=== PATIENT | male | born 1965 | race Caucasian/White ===

== ENCOUNTER 2016-08-19 14:49 | Emergency (ER) | payer OTHER ==
[2016-08-19] MEDS ORDERED: BABY ASPIRIN 81 MG CHEW PO ONE (15:21)
--- NOTE | 2016-08-19 15:23 | ERPHSYRPT ---
- History of Present Illness Time Seen by Provider: 08/19/16 15:15 Historian: patient Exam Limitations: no limitations Patient Subjective Stated Complaint: Pt c/o chest pain onset approx 1 hour ago. Denies any other symptoms. States he was just sitting at the desk. Also c/o bilateral "kidney pain" and urinary frequency. Triage Nursing Assessment: Pt alert and oriented x3. skin pink warm and dry. afebrile. heart tones irregular. no edema noted. pt does not appear to be in any distress at this time Physician History: 51 y/o morbidly obese male with history of a fib and arthritis comes to the ER with complaints of substernal chest pain, palpitations, dizziness and polyuria that started 2 hrs prior to arrival. Pt describes the pain as dull, 1/10, intermittent and pt has not taken any pain meds. Pt was diagnosed 15 years ago with a fib but decided to not being started on coumadin because of the interaction with diclofenac. Pt has had infrequent episodes of a fib throughout the years. Pt did admit to drinking coffee prior to having symptoms. Timing/Duration: today Activities at Onset: none Quality: dullness Location: substernal Chest Pain Radiation: no radiation Severity of Pain-Max: mild Severity of Pain-Current: none Modifying Factors: Improves With: nothing Associated Symptoms: denies symptoms Prior Chest Pain/Cardiac Workup: no prior chest pain Nitro Today/Relief: no nitro taken today Aspirin Treatment Today: no aspirin today Allergies/Adverse Reactions: No Known Drug Allergies Allergy (Unverified 08/19/16 14:59) Home Medications: Diclofenac Sodium 75 mg PO BID 08/19/16 [History] Metoprolol Tartrate 50 mg [Lopressor 50 MG] 100 mg PO BID 08/19/16 [ History] Sildenafil Citrate [Viagra] 25 mg PO UD 08/19/16 [History] Hx Tetanus, Diphtheria Vaccination/Date Given: (unknown) Hx Influenza Vaccination/Date Given: No Hx Pneumococcal Vaccination/Date Given: No Immunizations Up to Date: Yes - Review of Systems Constitutional: No Fever, No Chills Eyes: No Symptoms Ears, Nose, & Throat: No Symptoms Respiratory: No Cough, No Dyspnea Cardiac: Chest Pain, Palpitations, No Edema, No Syncope Abdominal/Gastrointestinal: No Abdominal Pain, No Nausea, No Vomiting, No Diarrhea Genitourinary Symptoms: No Dysuria Musculoskeletal: No Back Pain, No Neck Pain Skin: No Rash Neurological: No Dizziness, No Focal Weakness, No Sensory Changes Psychological: No Symptoms Endocrine: No Symptoms All Other Systems: Reviewed and Negative - Past Medical History Pertinent Past Medical History: Yes Cardiac History: Arrhythmia Musculoskeletal History: Arthritis - Past Surgical History Past Surgical History: Yes Musculoskeletal: Orthopedic Surgery Other Surgical History: knee scope - Social History Smoking Status: Never smoker Exposure to second hand smoke: No Drug Use: none Patient Lives Alone: No - Nursing Vital Signs Temperature: 98.0 F Temperature Source: Oral Pulse Rate: 115 Respiratory Rate: 22 Pain Intensity: 1 - Physical Exam General Appearance: no apparent distress, alert, obese Eye Exam: PERRL/EOMI, eyes nml inspection Ears, Nose, Throat Exam: normal ENT inspection, moist mucous membranes Neck Exam: normal inspection, non-tender, supple, full range of motion Respiratory Exam: normal breath sounds, lungs clear, No respiratory distress Cardiovascular Exam: tachycardia Gastrointestinal/Abdomen Exam: soft, No tenderness, No mass Back Exam: normal inspection, No CVA tenderness, No vertebral tenderness Extremity Exam: normal inspection, normal range of motion Neurologic Exam: alert, oriented x 3, cooperative, normal mood/affect, sensation nml, No motor deficits Skin Exam: normal color, warm, dry SpO2: 98 Oxygen Delivery: Room Air - Course EKG Interpreted by Me: RATE (hr 139), A-fib Ordered Tests: Active Orders 24 hr Category Date Time Status Support Architect STAT Care 08/19/16 15:21 Active EKG-ER Only STAT Care 08/19/16 15:46 Active IV Insertion STAT Care 08/19/16 15:21 Active Pulse Oximetry (ED) STAT Care 08/19/16 15:21 Active Re-Check Vital Signs STAT Care 08/19/16 15:21 Active CHEST 2 VIEWS (PA AND LAT) Stat Exams 08/19/16 15:22 Taken CBC W DIFF Stat Lab 08/19/16 15:35 Completed CK-Creatinine Phosphokinase Stat Lab 08/19/16 15:35 Completed CMP Stat Lab 08/19/16 15:35 Completed CULTURE,URINE Stat Lab 08/19/16 15:40 Received D-DIMER QUANTITATION Stat Lab 08/19/16 15:35 Completed PROTIME WITH INR Stat Lab 08/19/16 15:35 Completed PTT Stat Lab 08/19/16 15:35 Completed TROPONIN Q3H Lab 08/19/16 15:35 Completed TROPONIN Q3H Lab 08/19/16 18:30 Ordered TROPONIN Q3H Lab 08/19/16 21:30 Ordered TROPONIN Q3H Lab 08/20/16 00:30 Ordered TROPONIN Q3H Lab 08/20/16 03:30 Ordered UA W/ MICROSCOPIC Stat Lab 08/19/16 15:40 Completed UA W/RFX UR CULTURE Stat Lab 08/19/16 15:40 Completed Medication Summary Discontinued Medications Generic Name Dose Route Start Last Admin Trade Name Freq PRN Reason Stop Dose Admin Aspirin 324 mg 08/19/16 15:21 08/19/16 15:29 Baby Aspirin 81 Mg Chew PO 08/19/16 15:22 324 mg STAT ONE Administration Aspirin Confirm 08/19/16 15:25 Baby Aspirin 81 Mg Chew Administered 08/19/16 15:26 Dose 324 mg .ROUTE .STK-MED ONE Diltiazem HCl Confirm 08/19/16 15:28 Cardizem Iv 50 Mg/10 Ml Administered 08/19/16 15:29 Dose 50 mg IV .STK-MED ONE Lab/Rad Data: Laboratory Result Diagrams 08/19/16 15:35 08/19/16 15:35 Laboratory Results 08/19/16 08/19/16 08/19/16 Range/Units 15:40 15:35 15:35 WBC (4.0-10.5) K/mm3 RBC (4.1-5.6) M/mm3 Hgb (12.5-18.0) gm/dl Hct (42-50) % MCV (78-100) fl MCH (26-32) pg MCHC (32-36) g/dl RDW (11.5-14.0) % Plt Count (150-450) K/mm3 MPV (6-9.5) fl Gran % (36.0-66.0) % Lymphocytes % (24.0-44.0) % Monocytes % (0.0-12.0) % Eosinophils % (0.00-5.0) % Basophils % (0.0-0.4) % Basophils # (0-0.4) INR 0.99 (0.8-3.0) PTT 32.1 (24.1-36.1) SECONDS D-Dimer 0.690 H* (0.00-0.49) mg/L Sodium (136-145) mEq/L Potassium (3.5-5.1) mEq/L Chloride (98-107) mEq/L Carbon Dioxide (21-32) mEq/L Anion Gap (5-15) MEQ/L BUN (9-20) mg/dL Creatinine (0.55-1.30) mg/dl Estimated GFR ML/MIN Glucose (70-110) MG/DL Calcium (8.5-10.1) mg/dL Total Bilirubin (0.2-1.0) mg/dL AST (15-37) U/L ALT (12-78) U/L Alkaline Phosphatase (46-116) U/L Creatine Kinase (39-308) U/L Troponin I < 0.017 (0.000-0.056) ng/ml Serum Total Protein (6.4-8.2) gm/dL Albumin (3.4-5.0) g/dL Ur Collection Type VOID Urine Color LT.YELLOW (YELLOW) Urine Appearance CLEAR (CLEAR) Urine pH 7.5 (5-6) Ur Specific [place] 1.015 (1.005-1.025) Urine Protein 100 (Negative) Urine Glucose (UA) NEGATIVE (NEGATIVE) mg/dL Urine Ketones NEGATIVE (NEGATIVE) Urine Nitrite NEGATIVE (NEGATIVE) Urine Bilirubin NEGATIVE (NEGATIVE) Urine Urobilinogen 0.2 (0-1) mg/dL Urine WBC (Auto) NEGATIVE (NEGATIVE) Urine RBC (Auto) SMALL (0-5) Alvino/ul Urine Microscopic RBC 0-2 (0-2) /HPF Ur Epithelial Cells RARE (FEW) /HPF Urine Bacteria FEW (NEGATIVE) /HPF Specimen Received 08/19/16 1550 08/19/16 08/19/16 Range/Units 15:35 15:35 WBC 8.9 (4.0-10.5) K/mm3 RBC 5.49 (4.1-5.6) M/mm3 Hgb 15.3 (12.5-18.0) gm/dl Hct 47.2 (42-50) % MCV 86.0 (78-100) fl MCH 27.9 (26-32) pg MCHC 32.4 (32-36) g/dl RDW 15.1 H (11.5-14.0) % Plt Count 201 (150-450) K/mm3 MPV 10.2 H (6-9.5) fl Gran % 69.9 H (36.0-66.0) % Lymphocytes % 22.0 L (24.0-44.0) % Monocytes % 5.6 (0.0-12.0) % Eosinophils % 1.9 (0.00-5.0) % Basophils % 0.6 (0.0-0.4) % Basophils # 0.05 (0-0.4) INR (0.8-3.0) PTT (24.1-36.1) SECONDS D-Dimer (0.00-0.49) mg/L Sodium 144 (136-145) mEq/L Potassium 3.7 (3.5-5.1) mEq/L Chloride 105 (98-107) mEq/L Carbon Dioxide 28.7 (21-32) mEq/L Anion Gap 14.4 (5-15) MEQ/L BUN 19 (9-20) mg/dL Creatinine 1.18 (0.55-1.30) mg/dl Estimated GFR > 60 ML/MIN Glucose 165 H (70-110) MG/DL Calcium 8.7 (8.5-10.1) mg/dL Total Bilirubin 0.4 (0.2-1.0) mg/dL AST 25 (15-37) U/L ALT 50 (12-78) U/L Alkaline Phosphatase 83 (46-116) U/L Creatine Kinase 174 (39-308) U/L Troponin I (0.000-0.056) ng/ml Serum Total Protein 7.9 (6.4-8.2) gm/dL Albumin 3.6 (3.4-5.0) g/dL Ur Collection Type Urine Color (YELLOW) Urine Appearance (CLEAR) Urine pH (5-6) Ur Specific [place] (1.005-1.025) Urine Protein (Negative) Urine Glucose (UA) (NEGATIVE) mg/dL Urine Ketones (NEGATIVE) Urine Nitrite (NEGATIVE) Urine Bilirubin (NEGATIVE) Urine Urobilinogen (0-1) mg/dL Urine WBC (Auto) (NEGATIVE) Urine RBC (Auto) (0-5) Alvino/ul Urine Microscopic RBC (0-2) /HPF Ur Epithelial Cells (FEW) /HPF Urine Bacteria (NEGATIVE) /HPF Specimen Received - Progress Progress: improved Air Movement: good Progress Note: 08/19/16 17:55 The EKG shows rate controlled a fib (the teletypesetter monitor is defective and is picking up double the rate). The troponin is negative. The d-dimer is elevated at 0.690 and the patient will require a CTA chest to R/O PE but our machine has a limit of 400 lbs. Pt has been accepted at [facility] for admission for chest pain under the care of hospitalist, Dr Pradhan - Departure Time of Disposition: 17:57 Departure Disposition: Transfer Clinical Impression: Chest pain Condition: Stable Critical Care Time: Yes Critical Care Time(excluding separately billable procedures): ___ minutes (120 mins)
[2016-08-19] MEDS ORDERED: BABY ASPIRIN 81 MG CHEW ONE (15:25)
[2016-08-19] MEDS ORDERED: Cardizem IV 50 MG/10 ML IV ONE (15:28)
[2016-08-19 15:40] LABS: BASOPHIL % 0.6 % (0.0-0.4); Eosinophil % 1.9 % (0.00-5.0); Granulocytes % 69.9 % (36.0-66.0); Mean Corpuscular Hemoglobin 27.9 pg (26-32); Mean Platelet Volume 10.2 fl (6-9.5); Monocytes % 5.6 % (0.0-12.0); Platelet Count 201 K/mm3 (150-450); Red Blood Count 5.49 M/mm3 (4.1-5.6); Red Cell Distribution Width 15.1 % (11.5-14.0); White Blood Count 8.9 K/mm3 (4.0-10.5)
[2016-08-19 15:49] LABS: INR 0.99 (0.8-3.0); PROTIME 11.1 SECONDS (8.83-12.87)
[2016-08-19 15:51] LABS: PTT 32.1 SECONDS (24.1-36.1)
[2016-08-19 15:57] LABS: ALBUMIN 3.6 g/dL (3.4-5.0); ALKALINE PHOSPHATASE 83 U/L (46-116); ANION GAP 14.4 MEQ/L (5-15); BILIRUBIN,TOTAL 0.4 mg/dL (0.2-1.0); BLOOD UREA NITROGEN 19 mg/dL (9-20); CHLORIDE 105 mEq/L (98-107); Carbon Dioxide 28.7 mEq/L (21-32); Glucose 165 MG/DL (70-110); Potassium 3.7 mEq/L (3.5-5.1); SGOT/AST 25 U/L (15-37); SGPT/ALT 50 U/L (12-78); SODIUM 144 mEq/L (136-145); Total Protein 7.9 gm/dL (6.4-8.2)
[2016-08-19 16:08] LABS: Collection Type VOID
[2016-08-19 16:09] LABS: COMPLETE URINE MICROSCOPIC? YES; Ph 7.5 (5-6)
[2016-08-19 16:10] LABS: ADD URINE CULTURE? YES (NO); Bacteria FEW /HPF (NEGATIVE); Epithelial Cells RARE /HPF (FEW)
[2016-08-19 19:12] VITALS: BP 145/97; PULSE 123; O2SAT 96
--- NOTE | 2016-08-19 22:02 | XRAY ---
Indication: Chest pain and pressure. Comparison: None PA/lateral chest underinflated with subtle bibasilar infiltrates versus atelectasis. Remaining heart and lungs unremarkable. Bony thorax intact.
== END 2016-08-19 19:08 | disposition short-term general hospital (02) ==
LOC: ED 14:49
DX: R07.89 Other chest pain (principal); R35.0 Frequency of micturition; R00.2 Palpitations; R42 Dizziness and giddiness
CPT/HCPCS: 36000; 36415; 71020; 80053; 81000; 82550; 84484; 85025; 85379; 85610; 85730; 87086; 93005; 93041; 99284

== ENCOUNTER 2022-04-11 08:18 | Emergency (ER) | payer OTHER ==
[2022-04-11 08:27] VITALS: BP 175/89; PULSE 56; O2SAT 98
[2022-04-11] MEDS ORDERED: Adacel Vial IM ONE ×2 (08:55→09:10)
--- NOTE | 2022-04-11 09:08 | ERPHSYRPT ---
- History of Present Illness Time Seen by Provider: 04/11/22 08:25 Source: patient Exam Limitations: no limitations Patient Subjective Stated Complaint: Pt staets "I hit my thumb with a hammer." Triage Nursing Assessment: PT presesented alert and oriented X 3, skin pwd. Pt ambulates with an upright steady gait, able to speak in clear full sentences pt has lacertaion noted to left lateral tumb. Physician History: This a 57-year-old white male who is right-handed and was hammering when he accidentally hammered his left thumb. His tetanus status is not up-to-date. He presents with laceration/flap palmar aspect left thumb. Timing/Duration: today Quality: painful Severity: mild Location: hands (Left thumb palmar aspect) Possible Causes: other (Hammer injury) Associated Symptoms: denies symptoms Allergies/Adverse Reactions: No Known Drug Allergies Allergy (Verified 04/11/22 08:27) Hx Tetanus, Diphtheria Vaccination/Date Given: No (unknown) Hx Influenza Vaccination/Date Given: No Hx Pneumococcal Vaccination/Date Given: No Immunizations Up to Date: Yes Travel Risk - International Travel Have you traveled outside of the country in past 3 weeks: No - Coronavirus Screening Are you exhibiting any of the following symptoms?: No Close contact with a COVID-19 positive Pt in past 14-21 Days: No - Vaccine Status Have you recieved a Covid-19 vaccination: Yes Nursing Scheduler: Moderna - Vaccination Dates Date of 2cond Vaccination (if applicable): 2020 - Review of Systems Constitutional: No Symptoms Eyes: No Symptoms Ears, Nose, & Throat: No Symptoms Respiratory: No Symptoms Cardiac: No Symptoms Abdominal/Gastrointestinal: No Symptoms Genitourinary Symptoms: No Symptoms Musculoskeletal: No Symptoms Skin: Other (Accidental laceration left thumb) Neurological: No Symptoms Psychological: No Symptoms Endocrine: No Symptoms Hematologic/Lymphatic: No Symptoms Immunological/Allergic: No Symptoms All Other Systems: Reviewed and Negative - Past Medical History Pertinent Past Medical History: Yes Neurological History: No Pertinent History Cardiac History: Arrhythmia, Hypertension Respiratory History: No Pertinent History Endocrine Medical History: No Pertinent History Musculoskeletal History: Arthritis Other Medical History: AFIB - Past Surgical History Past Surgical History: Yes Musculoskeletal: Orthopedic Surgery Other Surgical History: knee scope - Social History Smoking Status: Never smoker Exposure to second hand smoke: No Drug Use: none Patient Lives Alone: No - Nursing Vital Signs Nursing Vital Signs: Initial Vital Signs Temperature 97.2 F 04/11/22 08:22 Pulse Rate 56 L 04/11/22 08:22 Respiratory Rate 20 04/11/22 08:22 Blood Pressure 175/89 04/11/22 08:22 O2 Sat by Pulse Oximetry 98 04/11/22 08:22 Pain Scale Pain Intensity 3 - Physical Exam General Appearance: no apparent distress, alert, anxiety Eye Exam: PERRL/EOMI, eyes nml inspection Ears, Nose, Throat Exam: normal ENT inspection, moist mucous membranes Neck Exam: normal inspection, non-tender, supple, full range of motion Respiratory Exam: airway intact, No chest tenderness, No respiratory distress Cardiovascular Exam: regular rate/rhythm, normal heart sounds, normal peripheral pulses Gastrointestinal/Abdomen Exam: No tenderness Rectal Exam: not done Back Exam: normal inspection, normal range of motion, No CVA tenderness, No vertebral tenderness Extremity Exam: lacerations (Left thumb left thumb), tenderness, other (Palmar aspect left thumb laceration measuring approximately 2-1/2 cm in a curvilinear flap. It is not actively bleeding. There is no foreign body. Patient is neurovascularly intact. There is no tendon injury) Neurologic Exam: alert, oriented x 3, cooperative, service observer II-XII nml as tested, normal mood/affect, nml cerebellar function, nml station & gait, sensation nml Skin Exam: laceration (See above description) Lymphatic Exam: No adenopathy SpO2 Interpretation: normal SpO2: 98 O2 Delivery: Room Air Procedures - Laceration/Wound Repair Left Volar Other Time of Procedure: 08:50 Wound Location: Left, hand (Thumb) Wound Length (cm): 2.5 Wound's Depth, Shape: superficial, linear, flap Wound Explored: clean (Evaluation was made in a bloodless field to the base and no foreign body present) Irrigated: Yes Hibiclens Prep: Yes Wound Repaired With: Steri-strips, Dermabond (And benzoin) Layer Closure?: No - Course Nursing assessment & vital signs reviewed: Yes Ordered Tests: Active Orders 24 hr Category Date Time Status Wound Care STAT Care 04/11/22 08:55 Active Medication Summary Discontinued Medications Generic Name Dose Route Start Last Admin Trade Name Freq PRN Reason Stop Dose Admin Diphtheria/Tetanus/Acell Pertussis 0.5 ml 04/11/22 08:55 Tdap --Diph,Pertuss(Acell),Tet Vac/Pf 0.5 Ml Vial IM 04/11/22 08:56 .ONCE ONE - Progress Progress: improved - Departure Departure Disposition: Home Clinical Impression: Laceration of left thumb Condition: Stable Critical Care Time: No Referrals: BETSY JACKSON [Primary Care Provider] - Follow up/PCP as directed Additional Instructions: Keep the dressing in place until the evening of 04/12/2022. At that time you can remove the pressure dressing and leave the Steri-Strips in place until they fall off on their own. Do not rub the Steri-Strips. Merely allow the soapy water to run across them starting the evening of 04/12/2022. Trim the Steri-Strips as discussed if they curl up and the edges. Do not pull them off. Use Tylenol and ibuprofen for pain control.
== END 2022-04-11 09:20 | disposition home or self-care (01) ==
LOC: ED 08:18
DX: S61.012A Laceration without foreign body of left thumb without damage to nail, initial encounter (principal); W20.8XXA Other cause of strike by thrown, projected or falling object, initial encounter; Y93.H3 Activity, building and construction; I10 Essential (primary) hypertension
CPT/HCPCS: 12001; 90471; 90715; 99282